=== PATIENT | female | born 2000 ===

== ENCOUNTER 2021-06-16 17:40 | Emergency (ER) | payer OTHER ==
[~2021-06-16] VITALS: Ht 167.6 cm; Wt 68.0 kg
[2021-06-16 17:45] VITALS: BP 102/57
[2021-06-16 19:08] LABS: Urine Bacteria FEW /hpf (None Seen); Urine Blood Negative /uL (Negative); Urine Mucus FEW (None Seen); Urine Specific Gravity 1.031 (1.001-1.035); Urine WBC 6 /hpf (0 - 5)
== END 2021-06-17 01:01 | disposition left against medical advice (07) ==
LOC: ER 17:40 → EDBD 17:40 → ER 06-17 01:01
DX: M54.6 Pain in thoracic spine (principal); M54.50 Low back pain, unspecified; Z53.21 Procedure and treatment not carried out due to patient leaving prior to being seen by health care provider
CPT/HCPCS: 81001